=== PATIENT | female | born 1995 | race Two or more races ===

== ENCOUNTER 2025-01-27 13:10 | Outpatient (AMB) | payer MEDICAID, SELFPAY ==
--- NOTE | 2025-01-27 13:12 | OBCLNT_ITS ---
Vital Signs 01/27/25 13:24 Height 1.57 m Height Method Stated Weight 47.344 kg Weight Measurement Method Standing Scale BMI 19.1 BP 127/85 H Blood Pressure Source Automatic Cuff Blood Pressure Location Right Upper Arm Position Sitting Respiration 17 Pulse 98 Pulse Source Monitor Temp 98.8 F Temp Source Temporal Artery Scan Pulse Oximetry (%) 98 Oxygen Delivery Method Room Air Allergies/Home Meds Allergies & Medications Allergies No Known Allergies Allergy (Verified 01/27/25 13:28) Medication Reconciliation omeprazole 20 mg capsule,delayed release 20 mg PO QDAY 06/27/20 [History Co nfirmed 01/27/25] Intake Visit Data Collection New Patient or Established: New Patient (never been to [facility]) Reason for Visit:: OBI Seen by Clinical Staff ONLY (RN/MA): No Sap Security Consultant Required: No Do You Feel Safe at Home: Yes Authorities Contacted: N/A PCP or OBGYN visit in last 3 months: No Hx Now: Yes Are you currently on any form of Control: No Last menstrual period: 11/27/24 Pain Present Currently: No Pain Scale Used: Chaney-Carmona/Numerical Pain scale:: 0 Smoking Status Smoking Status: Never smoker Questionnaires Covid-19 Vaccine Questionnaire Has patient been vacinated for Covid-19 Have you been vacinated for Covid-19: Yes PHQ-9 PHQ-2 Over the last 2 weeks, how often have you been bothered by any of the following problems? 1. Little interest or pleasure in doing things: not at all 2. Feeling down, depressed, or hopeless: not at all Total score: 0 PHQ-9 3. Trouble falling or staying asleep, or sleeping too much: Not at all 4. Feeling tired or having little energy: Not at all 5. Poor appetite or overeating: Not at all 6. Feeling bad about yourself - or that you are a failure or have let yourself or your family down: Not at all 7. Trouble concentrating on things, such as reading the newspaper or watching television: Not at all 8. Moving or speaking so slowly that other people could have noticed? - Or the opposite - being so fidgety or restless that you have been moving around a lot more than usual: not at all 9. Thoughts that you would be better off or of hurting yourself in some way: Not at all Total score: 0 If you checked off any problems, how difficult have these problems made it for you to do your work, take care of things at home, or get along with other people?: not difficult at all Source: Developed by Drs. Matthew Lancaster, Alethea Tinajero, James Rodriguez and colleagues, with an educational tommy from [employer]. 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: Past Medical History Past Medical History: No Hx Neurological Disorders, No Hx Cardiac Disorders, No Hx Blood Disorders, No Hx Gastrointestinal Disorders, No Hx Renal Disease, No Hx Diabetes Mellitus Type 1 and No Hx Diabetes Mellitus Type 2 OB Initial Visit Menstrual History Menstrual reliability: definite Flow: normal Menstrual regularity: regular Monthly: Yes Age at menarche: 12 On control pills at conception: No OB History : 1 Para: 0 Hx # Pregnancies: 0 Hx Total # of Abortions (Spontaneous & Elective): 0 # of Living Children: 0 Infection History & Risk Evaluation History of STDs: none HIV risk evaluation: low risk Hepatitis B risk evaluation: low risk Patient or partner has history of Genital Herpes: No Varicella/chicken pox status: unknown Genetic Screening & History Genetic Screening/Teratology Counseling - Includes patient, baby's father, or anyone in either family with: 1. Patient's age 35 years or older as of estimated date of delivery: No 2. Thalassemia (Amharic, Citizen Of [place], Mediterranean, or Background); MCV less than 80: No 3. Neural Tube Defect (Meningomyelocele, Spina Bifida, or Anencephaly): No 4. Congenital Heart Defect: No 5. Down Syndrome: No 6. Kevon-Sachs (Ashkenazi Religion, Cajun, Luxembourgish [place]ian): No 7. Qi Disease (Ashkenazi Religion): No 8. Familial Dysautonomia (Ashkenazi Religion): No 9. Sickle Cell Disease or Trait (): No 10. Hemophilia or other blood disorders: No 11. Muscular Dystrophy: No 12. Cystic Fibrosis: No 13. Jeanna's Chorea: No 14. Mental Retardation/Autism: No 15. Other inherited genetic or chromosomal disorder: No 16. Maternal Metabolic Disorder (EG,TYPE 1 Diabetes, PKU): No 17. Patient or baby's father had a child with defects not listed above: No 18. Recurrent loss or a stillbirth: No 19. Medications (including supplements, vitamins, herbs or otc drugs)/illicit/recreational drugs/alcohol since last menstrual period: No 20. Any other: No Infection History 1. Live with someone with TB or exposed to TB: No 2. Rash or viral illness since last menstrual period: No 3. 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
[2025-01-27 13:24] VITALS: BP 127/85; PULSE 98; RESP 17; TEMP 37.1; O2SAT 98; BMI 19.1
== END 2025-01-27 13:50 | disposition home or self-care (01) ==
PROVIDERS: PCP Nurse Practitioner Family; Referring Provider Nurse Practitioner Family; Supervising Provider Obstetrics & Gynecology; Visit Provider Obstetrics & Gynecology
DX: O26.849 Uterine size-date discrepancy, unspecified trimester (principal); Z3A.00 Weeks of gestation of pregnancy not specified
CPT/HCPCS: 99203; G0463

== ENCOUNTER → 2025-02-06 | Outpatient (CLI) | payer MEDICAID, SELFPAY ==
--- NOTE | 2025-02-06 | XR_ITS ---
Examination: Complete OB ultrasound, less than 14 weeks, transabdominal Date and time of exam: February 06, 2025 1432 hours INDICATIONS: Unknown size and dates Technique: Obstetrical ultrasound images less than 14 weeks performed via transabdominal imaging Findings: A normal shaped single intrauterine gestation is present in the uterus. CRL 3.6 cm corresponds to 10 weeks 3 days gestational age Cardiac motion 176 BPM Ultrasonographic survey of visible and placental structures unremarkable. Amniotic fluid volume appears appropriate for this estimated gestational age. Right ovary 2.5 cm arterial flow. Left ovary obscured by bowel gas. IMPRESSION: Viable intrauterine gestation 10 weeks 3 days.
--- NOTE | 2025-02-06 13:59 | XR_ITS ---
Examination: OB Transvaginal ultrasound of the pelvis, complete Technique: Transvaginal sonographic images pelvis performed using lopez scale imaging Exam date and time: February 06, 2025 1445 hours INDICATIONS: Unknown size and dates FINDINGS: Uterus 11.7 cm pole 2.9 cm corresponds to 9 weeks 5 day gestational age Cardiac motion 169 bpm Right ovary 3.6 cm arterial flow Left ovary 2.5 cm arterial flow IMPRESSION: Viable intrauterine gestation 9 weeks 5 days.
== END | disposition home or self-care (01) ==
PROVIDERS: PCP Family Medicine; Referring Provider Obstetrics & Gynecology; Visit Provider Obstetrics & Gynecology
DX: O26.849 Uterine size-date discrepancy, unspecified trimester (principal); O36.80X0 Pregnancy with inconclusive fetal viability, not applicable or unspecified; Z3A.10 10 weeks gestation of pregnancy
CPT/HCPCS: 76801; 76817

== ENCOUNTER 2025-02-14 08:54 | Outpatient (AMB) | payer MEDICAID, SELFPAY ==
[2025-02-14 09:04] VITALS: BP 126/80; PULSE 96; RESP 17; TEMP 36.8; O2SAT 98; BMI 19.7
--- NOTE | 2025-02-14 09:04 | OBCLNT_ITS ---
Vital Signs 02/14/25 09:04 Height 1.57 m Height Method Stated Weight 48.648 kg Weight Measurement Method Standing Scale BMI 19.7 BP 126/80 Blood Pressure Source Automatic Cuff Blood Pressure Location Right Upper Arm Position Sitting Respiration 17 Pulse 96 Pulse Source Monitor Temp 98.3 F Temp Source Temporal Artery Scan Pulse Oximetry (%) 98 Oxygen Delivery Method Room Air Allergies/Home Meds Allergies & Medications Allergies No Known Allergies Allergy (Verified 02/14/25 09:05) Medication Reconciliation vitamin with calcium no.72-iron 27 mg-folic acid 1 mg tablet ( Vitamins Plus Low Iron) 1 tab PO QDAY 90 days #90 tabs 02/07/25 [Rx Confirmed 02/14/25] Intake Visit Data Collection New Patient or Established: Established Patient (seen at [facility] within 3 years) Reason for Visit:: OBC Seen by Clinical Staff ONLY (RN/MA): No Caramel Maker Required: No Do You Feel Safe at Home: Yes Authorities Contacted: N/A PCP or OBGYN visit in last 3 months: Yes Date of Last PCP or OBGYN visit: 01/27/25 Hx Now: Yes Are you currently on any form of Control: No Pain Present Currently: No Pain Scale Used: Chaney-Carmona/Numerical Pain scale:: 0 Smoking Status Smoking Status: Never smoker Questionnaires Covid-19 Vaccine Questionnaire Has patient been vacinated for Covid-19 Have you been vacinated for Covid-19: Yes PHQ-9 PHQ-2 Over the last 2 weeks, how often have you been bothered by any of the following problems? 1. Little interest or pleasure in doing things: not at all 2. Feeling down, depressed, or hopeless: not at all Total score: 0 PHQ-9 3. Trouble falling or staying asleep, or sleeping too much: Not at all 4. Feeling tired or having little energy: Not at all 5. Poor appetite or overeating: Not at all 6. Feeling bad about yourself - or that you are a failure or have let yourself or your family down: Not at all 7. Trouble concentrating on things, such as reading the newspaper or watching television: Not at all 8. Moving or speaking so slowly that other people could have noticed? - Or the opposite - being so fidgety or restless that you have been moving around a lot more than usual: not at all 9. Thoughts that you would be better off or of hurting yourself in some way: Not at all Total score: 0 If you checked off any problems, how difficult have these problems made it for you to do your work, take care of things at home, or get along with other people?: not difficult at all Source: Developed by Drs. Matthew Lancaster, Alethea Tinajero, James Rodriguez and colleagues, with an educational tommy from [employer]. 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 Denies HERBERT, VC, and epigastric pain. - Elena Mcgee is presenting for a routine visit and ultrasound follow-up. - She is currently 10 weeks and 6 days with an estimated due date of September 06, 2025. - Patient had an ultrasound on February 06, 2025, when she was 9 weeks and 5 days . - She had questions about caffeine intake during . - Ultrasound (02/06/2025): - Gestational age: 9 weeks and 5 days Care OB Visit Log OB Flowsheet Initial Weight: Not Recorded Date -?-?-?-?-?-?-?-?-?-?-?-?- EGA Weight BP Alb Glu CTX Pres Fundal ht FHR Mov Dilation Station Effacement Hx Notes Visit Note 02/14/25 -?-?-?-?-?-?-?-?-?-?-?-?- 10w 6d 48.648 kg 126/80 10w6d here for routine f/u. Dating from 02/06 US at 9w5d; SHIRA 09/06/25. No c/o. Discussed caffeine intake?advised limit to =60?mg/day. NIPT and labs ordered. Plan: return in 4wks. SHIRA Calculator Estimated Delivery Date Method Current WG Current Estimate 09/06/25 Ultrasound #1 10w 6d Exam General General Appearance: alert, in no apparent distress and healthy appearing Head Head exam: atraumatic Neck Neck exam: Present normal inspection and trachea midline Chest Chest inspection: Present normal inspection and symmetric chest wall rise External exam: Present normal external exam; Absent tenderness Neuro Neurological exam: Present oriented X3 Psych Psychiatric exam: Present normal affect and normal mood Office Procedures OB Clinic LOC & Office Proc's Nursing/Assessment Patient Status: Established Patient OB Clinic Nursing Assessment: Medication Reconciliation, Update PMH in EMR and Vital Signs OB Clinic Coordination of Care: Complex Care and Chronic Disease 1-5, Consent,records obtained, informed consent, Education Simp Pt/Fam, Results/Orders obtained and Staff clarify orders Special Needs: Heart tones Established Patient Charge Established Patient Point Assignment: 120 Established Patient Point Charge: EP Level 4 (120-155) Assessment & Plan Diagnosis / Problem List (1) Uterine size date discrepancy, antepartum: Status: Acute (2) Supervision of high risk , unspecified, first trimester: Status: Acute Plan Problem List - , first trimester Assessment Routine visit at 10 weeks and 6 days gestation based on ultrasound dating from 02/06/2025. Estimated due date is 09/06/2025. labs and NIPT testing were ordered. Patient expressed concerns about caffeine intake during . Plan - Return for follow-up visit in 4 weeks - labs and NIPT testing to be performed - Limit caffeine intake to no more than 60 mg in a 24-hour period - Initial precautions reviewed
== END 2025-02-14 10:06 | disposition home or self-care (01) ==
LOC: HODSOBC 08:54
PROVIDERS: Supervising Provider Obstetrics & Gynecology; Visit Provider Obstetrics & Gynecology
DX: O09.891 Supervision of other high risk pregnancies, first trimester (principal); Z3A.10 10 weeks gestation of pregnancy; O26.841 Uterine size-date discrepancy, first trimester
CPT/HCPCS: 99214; G0463

== ENCOUNTER 2025-03-14 10:24 | Outpatient (AMB) | payer MEDICAID, SELFPAY ==
[2025-03-14 10:29] VITALS: BP 125/85; PULSE 105; RESP 18; TEMP 36.6; O2SAT 99; BMI 19.5
--- NOTE | 2025-03-14 10:29 | AMB.OBVISIT ---
Vital Signs 03/14/25 10:29 Height 1.57 m Height Method Stated Weight 48.308 kg Weight Measurement Method Standing Scale BMI 19.5 BP 125/85 H Blood Pressure Source Automatic Cuff Blood Pressure Location Left Upper Arm Position Sitting Respiration 18 Pulse 105 H Pulse Source Monitor Temp 98 F Temp Source Oral Pulse Oximetry (%) 99 Oxygen Delivery Method Room Air Allergies/Home Meds Allergies & Medications Allergies No Known Allergies Allergy (Verified 03/14/25 10:37) Medication Reconciliation vitamins with calcium no.72-iron 27 mg-folic acid 1 mg tablet ( Vitamins Plus Low Iron) 1 tab PO QDAY 90 days #90 tabs 02/07/25 [Rx Confirmed 03/14/25] Intake Visit Data Collection New Patient or Established: Established Patient (seen at [facility] within 3 years) Reason for Visit:: CARE Seen by Clinical Staff ONLY (RN/MA): No Banking Center Manager Required: No Do You Feel Safe at Home: Yes Authorities Contacted: N/A PCP or OBGYN visit in last 3 months: Yes Hx Now: Yes Are you currently on any form of Control: No Pain Present Currently: No Pain Scale Used: Chaney-Carmona/Numerical Pain scale:: 0 Smoking Status Smoking Status: Never smoker Questionnaires Covid-19 Vaccine Questionnaire Has patient been vacinated for Covid-19 Have you been vacinated for Covid-19: Yes PHQ-9 PHQ-2 Over the last 2 weeks, how often have you been bothered by any of the following problems? 1. Little interest or pleasure in doing things: not at all 2. Feeling down, depressed, or hopeless: not at all Total score: 0 PHQ-9 3. Trouble falling or staying asleep, or sleeping too much: Not at all 4. Feeling tired or having little energy: Not at all 5. Poor appetite or overeating: Not at all 6. Feeling bad about yourself - or that you are a failure or have let yourself or your family down: Not at all 7. Trouble concentrating on things, such as reading the newspaper or watching television: Not at all 8. Moving or speaking so slowly that other people could have noticed? - Or the opposite - being so fidgety or restless that you have been moving around a lot more than usual: not at all 9. Thoughts that you would be better off or of hurting yourself in some way: Not at all Total score: 0 Source: Developed by Drs. Matthew Lancaster, Alethea Tinajero, James Rodriguez and colleagues, with an educational tommy from [employer] 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 Former smoker. U/S today confirms IUP with FHR 184 bpm. Plan: Initiate routine care labs including NIPT, SMA, CF screening Continue vitamins Reviewed genetic screening options and early precautions f/u in 4 weeks or sooner PRN. 02/14/25 <del>?</del> 10w 6d 48.648 kg 126/80 10w6d here for routine f/u. Dating from 02/06 [place] at 9w5d; SHIRA 09/06/25. No c/o. Discussed caffeine intake?advised limit to =60?mg/day. NIPT and labs ordered. Plan: return in 4wks. 03/14/25 <del>?</del> 14w 6d 48.308 kg 125/85 absent Elena Mcgee, , presents for routine visit at 14 weeks gestation. Denies HERBERT, VC, and epigastric pain. Return in 4 weeks SHIRA Calculator Estimated Delivery Date Method Current WG Current Estimate 09/06/25 Ultrasound #1 24w 6d Notes Visit Date: 03/14/25 Last Updated by: Manuel Contreras MD Laboratory, Imaging, and Diagnostic Test Results - Date: 02/28/2025 - Cystic fibrosis screening: Negative - NIPT (Non-invasive testing): Negative, gender consistent with male - SMA (Spinal muscular atrophy) testing: Negative - Date: 01/13/2025 - Hepatitis B surface antigen: Negative - Hepatitis C: Negative - RPR (Rapid plasma reagin): Non-reactive - Rubella immunity: Immune - Blood type: A positive - Antibody screen: Negative - GC/Chlamydia: Negative Assessment & Plan Diagnosis / Problem List (1) Supervision of high risk , unspecified, first trimester: Status: Acute
== END 2025-03-14 10:57 | disposition home or self-care (01) ==
LOC: HODSOBC 10:24
PROVIDERS: Supervising Provider Obstetrics & Gynecology; Visit Provider Obstetrics & Gynecology
DX: O09.92 Supervision of high risk pregnancy, unspecified, second trimester (principal); Z3A.14 14 weeks gestation of pregnancy
CPT/HCPCS: 99214; G0463